=== PATIENT | female | born 1940 | race Caucasian/White ===

== ENCOUNTER 2016-09-06 10:20 | Day surgery (SDC) | payer OTHER ==
[2016-09-06] MEDS ORDERED: LIDOCAINE 1% 30 ML SDV ONE (11:54)
--- NOTE | 2016-09-07 15:57 | EPPROC ---
Electrophysiology Procedure Note: Procedure: LINQ implant Indication: TIA of unknown etiology Procedure: Parts prepared and draped. LA given. Incision placed. Using usual technique, LINQ implanted. [place] placed. Dry sterile dressing placed. Conclusion: Successful LINQ implant Patient Problems: Problems Problem Status Diagnosed Acute ischemic stroke Acute
== END 2016-09-06 12:30 | disposition home or self-care (01) ==
LOC: FCATH 10:20
PROVIDERS: ATTEND Internal Medicine Cardiovascular Disease
PROC: 0JH63PZ Insertion of Cardiac Rhythm Related Device into Chest Subcutaneous Tissue and Fascia, Percutaneous Approach (ICD-10-PCS; principal; 2016-09-06)
DX: I44.39 Other atrioventricular block (principal); E11.9 Type 2 diabetes mellitus without complications; M81.0 Age-related osteoporosis without current pathological fracture; K21.9 Gastro-esophageal reflux disease without esophagitis; Z86.73 Personal history of transient ischemic attack (TIA), and cerebral infarction without residual deficits; E03.9 Hypothyroidism, unspecified
CPT/HCPCS: C1764

== ENCOUNTER 2016-10-18 10:40 | Observation (INO) | payer OTHER ==
[2016-10-18] MEDS ORDERED: NS 1,000 ML IV ONE (10:46)
[2016-10-18] MEDS ORDERED: BACITRACIN IRRIGATION/NS 50,000 UNITS/1,000 ML BTL IRR ONE (10:46)
[2016-10-18] MEDS ORDERED: DIAZEPAM 5 MG TAB PO ONE (10:46)
[2016-10-18] MEDS ORDERED: diphenhydrAMINE 25 MG CAP PO ONE (10:46)
[2016-10-18] MEDS ORDERED: VANCOMYCIN HCL/NORMAL SALINE 250 ML IV ONE (10:47)
--- NOTE | 2016-10-18 11:12 | CPEKG ---
Heart Rate: 90 RR Interval: 667 P-R Interval: 264 QRSD Interval: 88 QT Interval: 372 QTC Interval: 455 P [place]: 46 QRS [place]: -41 T Wave [place]: 113 EKG Severity - ABNORMAL ECG - EKG Impression: SINUS RHYTHM EKG Impression: FIRST DEGREE AV BLOCK EKG Impression: LAD, CONSIDER LEFT ANTERIOR FASCICULAR BLOCK EKG Impression: ANTERIOR INFARCT, OLD Electronically Signed By: Anahi Pacheco 18-Oct-2016 15:18:13
[2016-10-18] MEDS ORDERED: LIDOCAINE 1% 30 ML SDV ONE ×2 (11:27→13:52)
[2016-10-18 11:40] LABS: % IMMATURE GRANULYOCYTES 0.2 % (0.0-1.1); ABSOLUTE IMMATURE GRANULOCYTES 0.02 10^3/uL (0.00-0.10); ADD DIFF? NO; ADD MORPH? NO; ADD SCAN? NO; ATYPICAL LYMPHOCYTE FLAG 10 (0-99); FRAGMENT RBC FLAG 0 (0-99); HEMATOCRIT 41.5 % (38.0-47.0); HEMOGLOBIN 13.4 g/dL (12.6-16.3); LEFT SHIFT FLG 0 (0-99); LIPEMIA HEMOLYSIS FLAG 80 (0-99); MEAN CELL HEMOGLOBIN 30.6 pg (27.9-34.1); MEAN CELL HEMOGLOBIN CONCENTR. 32.3 g/dL (32.4-36.7); MEAN CELL VOLUME 94.7 fL (81.5-99.8); MEAN PLATELET VOLUME 9.6 fL (8.7-11.7); PLATELET CLUMPS FLAG 40 (0-99); PLATELET COUNT 256 10^3/uL (150-400); RED BLOOD CELL COUNT 4.38 10^6/uL (4.18-5.33); RED CELL DISTRIBUTION WIDTH 13.8 % (11.5-15.2)
[2016-10-18 11:45] LABS: INR 1.02 (0.83-1.16); PROTIME(PATIENT) 13.3 SEC (12.0-15.0)
[2016-10-18 11:58] LABS: ANION GAP 12 mEq/L (8-16); CALCIUM 9.6 mg/dL (8.5-10.4); CARBON DIOXIDE 19 mEq/l (22-31); CHLORIDE 112 mEq/L (97-110); CREATININE 0.9 mg/dL (0.6-1.0); GLOMERULAR FILTRATION RATE > 60; GLUCOSE 144 mg/dL (70-100); POTASSIUM 4.5 mEq/L (3.5-5.2); SODIUM 143 mEq/L (134-144); SPECIMEN HEMOLYSIS 140
[2016-10-18] MEDS ORDERED: fentaNYL 100 MCG/2 ML INJ ONE (12:17)
[2016-10-18] MEDS ORDERED: LIDOCAINE 2% 5 ML SDV ONE (12:17)
[2016-10-18] MEDS ORDERED: PROPOFOL 200 MG/20 ML VIAL ONE ×2 (12:18→12:26)
[2016-10-18] MEDS ORDERED: MIDAZOLAM 2 MG/2 ML VIAL ONE (12:20)
[2016-10-18] MEDS ORDERED: LIDO/EPI 1% **for epidural** 30 ML SDV ONE (13:44)
[2016-10-18] MEDS ORDERED: VANCOMYCIN HCL/NORMAL SALINE 250 ML IV SCH (14:00)
[2016-10-18] MEDS ORDERED: ACETAMINOPHEN 325 MG TAB PO PRN (21:36)
[2016-10-18] MEDS ORDERED: KETOROLAC 15 MG/1 ML SDV IVP PRN (21:37)
[2016-10-18] MEDS ORDERED: HYDROCODONE/APAP 5/325 TAB PO PRN (21:38)
[2016-10-19 05:13] LABS: % IMMATURE GRANULYOCYTES 0.2 % (0.0-1.1); ABSOLUTE IMMATURE GRANULOCYTES 0.02 10^3/uL (0.00-0.10); ADD DIFF? NO; ADD MORPH? NO; ADD SCAN? NO; ATYPICAL LYMPHOCYTE FLAG 0 (0-99); FRAGMENT RBC FLAG 0 (0-99); HEMATOCRIT 37.9 % (38.0-47.0); HEMOGLOBIN 12.4 g/dL (12.6-16.3); LEFT SHIFT FLG 0 (0-99); LIPEMIA HEMOLYSIS FLAG 80 (0-99); MEAN CELL HEMOGLOBIN 30.9 pg (27.9-34.1); MEAN CELL HEMOGLOBIN CONCENTR. 32.7 g/dL (32.4-36.7); MEAN CELL VOLUME 94.5 fL (81.5-99.8); MEAN PLATELET VOLUME 10.2 fL (8.7-11.7); PLATELET CLUMPS FLAG 0 (0-99); PLATELET COUNT 231 10^3/uL (150-400); RED BLOOD CELL COUNT 4.01 10^6/uL (4.18-5.33); RED CELL DISTRIBUTION WIDTH 13.7 % (11.5-15.2)
[2016-10-19 05:26] LABS: ANION GAP 11 mEq/L (8-16); CALCIUM 8.9 mg/dL (8.5-10.4); CARBON DIOXIDE 22 mEq/l (22-31); CHLORIDE 109 mEq/L (97-110); CREATININE 0.8 mg/dL (0.6-1.0); GLOMERULAR FILTRATION RATE > 60; GLUCOSE 105 mg/dL (70-100); SODIUM 142 mEq/L (134-144)
--- NOTE | 2016-10-19 08:52 | CPEKG ---
Heart Rate: 85 RR Interval: 706 P-R Interval: 292 QRSD Interval: 90 QT Interval: 376 QTC Interval: 447 P [place]: 6 QRS [place]: -41 T Wave [place]: 98 EKG Severity - ABNORMAL ECG - EKG Impression: SINUS RHYTHM EKG Impression: FIRST DEGREE AV BLOCK EKG Impression: LEFT AXIS DEVIATION EKG Impression: CONSIDER INFERIOR INFARCT EKG Impression: ANTERIOR INFARCT, OLD Electronically Signed By: Anahi Pacheco 19-Oct-2016 15:07:16
[2016-10-19 09:09] VITALS: PULSE 79
[2016-10-19] MEDS ORDERED: VANCOMYCIN HCL/NORMAL SALINE 250 ML IV ONE (10:00)
--- NOTE | 2016-10-19 10:34 | EPPROC ---
Electrophysiology Procedure Note: PROCEDURE PERFORMED: * Implantation of an A/V Pacemaker * * Fluoroscopy INDICATION: THis is a 75 yr old with paroxysmal AV block associated with lightheadedness and dizziness. In view of this it was decided to implant a dual chamber pacemaker. PROCEDURE NOTE: Patient presented to the cardiac catherization laboratory in a fasting, post absorptive state. Cardiac chemical lab supervisor nurse administered moderate sedation. The left infraclavicular area was prepped and draped in the usual sterile fashion. Lidocaine plus bupivacaine was used for local anesthesia. Left subclavian venography was performed by injection of iodinated contrast into the left antecubital vein. This was done to assure patency of the vein and also to assess for any anatomical aberrations. Using a combination of blunt and sharp dissection and electrocautery, the dissection was carried down to the prepectoral fascia. All bleeding was controlled with electrocautery. Fluoroscopy was utilized during the entire procedure for venous access and placement of the leads. Using the usual technique, left cephalic vein was accessed and a glidewire was placed. Through this initially a 9F and later a 7F sheath was passed. Placement of the guidewires into the venous system was confirmed by low- pressure blood return and also by visualizing the guidewires advancing into the inferior vena cava. A purse string suture was applied around the guidewires. An active fixation ventricular lead was advanced into the right ventricular apex and screwed in place. An active fixation atrial lead was advanced into the right atrial appendage and screwed in place. The peel away sheaths were removed. Pacing thresholds, sensing parameters and lead impedances were measured. There was no diaphragmatic stimulation at maximum output. The leads were sutured to the prepectoral fascia with 3 nonabsorbable sutures each. The pocket was created and it was flushed using antibiotic solution. It was inspected for any bleeding. The leads were attached to the pacemaker securely. The pacemaker was inserted into the pocket and secured in place with a nonabsorbable suture. Fluoroscopy was performed in MANLEY and [place] planes to verify right-sided placement of the leads. Also fluoroscopy of the pacemaker pocket was performed. The pacemaker pocket was closed in 3 layers with absorbable vicryl sutures. Steristrips were placed. Appropriate dressing was applied. The patient left the cardiac catheterization laboratory in stable condition. Serial Numbers: * Device: Ancturonik Eluna 8 DR KONG [id number] * Atrial Lead: Biotronik SOlia S 45 SN [id number] * Ventricular Lead: Biotronik SOlia S53 SN [id number] Stimulation Thresholds & Impedance Measurements: * Atrial Lead 1.7mV, 0.6@0.4ms, 579Ohms * Ventricular Lead 8.9mV, 0.6@0.4ms, 760Ohms Quan Pacing Parameters * Pacing mode: DDD * Lower rate: 60 * Upper tracking rate: 130 * Upper sensor rate: 130 Patient Problems: Problems Problem Status Onset Acute ischemic stroke Acute
[2016-10-19] MEDS ORDERED: EPINEPHRINE 0.3 MG IJ PRN (12:08)
[2016-10-19] MEDS ORDERED: NON-FORMULARY NEW DRUG (Ranitidine Hcl [Zantac] 150 MG) PO PRN (12:08)
[2016-10-19] MEDS ORDERED: ALBUTEROL HFA ANES ONLY 200 PUFFS/8.5 GM MDI IH PRN (12:08)
[2016-10-19 12:13] VITALS: BP 141/69; RESP 17; TEMP 99.4; O2SAT 96
[2016-10-19] MEDS ORDERED: ALBUTEROL 60 PUFFS/8 GM MDI IH PRN (12:22)
[2016-10-19] MEDS ORDERED: FAMOTIDINE 20 MG TAB PO PRN (12:24)
[2016-10-20] MEDS ORDERED: LEVOTHYROXINE 50 MCG TAB PO SCH (06:00)
[2016-10-20] MEDS ORDERED: MULTIVITAMINS 1 EACH TAB PO SCH (09:00)
[2016-10-20] MEDS ORDERED: NON-FORMULARY NEW DRUG (Metformin Hcl [Metformin Hcl Er] 500 MG) PO SCH (09:00)
[2016-10-20] MEDS ORDERED: CETIRIZINE 10 MG TAB PO SCH (09:00)
[2016-10-20] MEDS ORDERED: ATORVASTATIN CALCIUM 40 MG TAB PO SCH (09:00)
[2016-10-20] MEDS ORDERED: TRIAMCINOLONE ACETONIDE NS SCH (09:00)
[2016-10-20] MEDS ORDERED: ASPIRIN EC 325 MG TAB PO SCH (09:00)
[2016-10-20] MEDS ORDERED: PANTOPRAZOLE SODIUM 40 MG TAB PO SCH (09:00)
[2016-10-20] MEDS ORDERED: metFORMIN SR 500 MG TAB PO SCH (09:00)
--- NOTE | 2016-10-25 13:36 | GDS ---
[f rep st] DISCHARGE SUMMARY ADMISSION DIAGNOSES: 1. Paroxysmal atrioventricular block. 2. Planned permanent pacemaker placement. 3. Planned extraction of LINQ monitor. 4. History of cerebrovascular accident. DISCHARGE DIAGNOSES: 1. Status post placement of permanent pacemaker, MRI compatible dual-chamber. 2. Successful extraction of LINQ monitor with no complications. 3. Paroxysmal atrioventricular block. 4. Post cerebrovascular accident. COURSE OF HOSPITALIZATION: The patient was seen by Dr. Yusuf in clinic. While previously hospitaliz ed, there was noted paroxysmal AV block. She did wear a 30-day monitor to confirm rhythm, which did show nonconducted P waves without associated nausea, vomiting or other symptoms. Additionally, par oxysmal AV block was noted. It was determined that she have a pacemaker placed. This is an MRI com patible dual-chamber pacemaker. She tolerated the procedure well with no complications. The LINQ m onitor was extracted successfully with no complications. Her hospital course was uneventful. At this time, she currently is stable for discharge. PHYSICAL EXAMINATION: VITAL SIGNS: On day of discharge, blood pressure 141/69, heart rate 79 and r egular, oxygen saturation 96%, temperature 37.4 Celsius. EKG shows a paced rhythm. CARDIAC: Heart rate is regular. No murmurs, rubs, gallops. RESPIRATORY: Lung sounds are clear to auscultation. No wheezes, rales, or rhonchi. Pacemaker incision site is covered with no bloody dressing. No ind uration or redness is noted. Mild tenderness with exam. LINQ extraction site shows no bleeding, in duration or tenderness. DISCHARGE MEDICATION: Aspirin 325 mg daily, Protonix 40 mg daily, Zyrtec 10 mg daily, Lipitor 40 mg daily, Synthroid 50 mcg daily. Nasacort 10.8 mL nasal spray daily, multivitamin 1 daily, ProAir in haler 2 puffs 4 times a day as needed, metformin 500 mg daily, Zantac 150 mg daily as needed, EpiPen as needed, Tylenol 650 mg every 6 hours as needed for pain not to exceed 3 g daily. REPORT: Procedure report 10/19/2016: 1. Implantation of AV pacemaker. 2. Extraction of LINQ monitor. Indication: Paroxysmal AV block associated with lightheadedness and dizziness. Device was a [email or web address], pacing mode DDD, lower rate 60, upper tracking rate 130, upper sensor rate 130. DISCHARGE PLAN: 1. LINQ monitor was extracted. There was no indication of any atrial fibrillation. This was looke d for due to her recent cerebrovascular accident. 2. Left arm restrictions for 1 week. 3. Follow up with Dr. Yusuf in 3 weeks. At this time, she currently is stable for discharge. /[id number]/MODL
== END 2016-10-19 14:22 | disposition home or self-care (01) ==
LOC: FCATH 10:40 → F2W 13:35
PROVIDERS: ADMIT Internal Medicine Cardiovascular Disease; ATTEND Internal Medicine Cardiovascular Disease
DX: I44.30 Unspecified atrioventricular block (principal); E03.9 Hypothyroidism, unspecified; E11.9 Type 2 diabetes mellitus without complications; M81.0 Age-related osteoporosis without current pathological fracture; Z86.73 Personal history of transient ischemic attack (TIA), and cerebral infarction without residual deficits
CPT/HCPCS: 33208; 71020; 93005; C1769; C1785; C1898; G0378; J1885; J2250; J2704; J3010; J3370

== ENCOUNTER 2016-10-26 11:20 | Observation (INO) | payer OTHER ==
[2016-10-26] MEDS ORDERED: DIAZEPAM 5 MG TAB PO ONE (11:32)
[2016-10-26] MEDS ORDERED: BACITRACIN IRRIGATION/NS 50,000 UNITS/1,000 ML BTL IRR ONE (11:32)
[2016-10-26] MEDS ORDERED: NS 1,000 ML IV ONE (11:32)
[2016-10-26] MEDS ORDERED: diphenhydrAMINE 25 MG CAP PO ONE (11:32)
--- NOTE | 2016-10-26 11:45 | CPEKG ---
Heart Rate: 88 RR Interval: 682 P-R Interval: 276 QRSD Interval: 94 QT Interval: 368 QTC Interval: 446 P [place]: 26 QRS [place]: -51 T Wave [place]: 65 EKG Severity - ABNORMAL ECG - EKG Impression: SINUS RHYTHM EKG Impression: FIRST DEGREE AV BLOCK EKG Impression: LEFT ANTERIOR FASCICULAR BLOCK EKG Impression: ANTERIOR INFARCT, OLD EKG Impression: UNCHANGED IN COMPARISON TO PRIOR Electronically Signed By: Javier Gramajo 27-Oct-2016 08:54:51
[2016-10-26] MEDS ORDERED: LIDOCAINE 1% 30 ML SDV ONE (11:55)
[2016-10-26] MEDS ORDERED: MIDAZOLAM 2 MG/2 ML VIAL ONE ×2 (11:55→13:14)
[2016-10-26] MEDS ORDERED: fentaNYL 100 MCG/2 ML INJ ONE ×2 (11:56→13:14)
[2016-10-26] MEDS ORDERED: BUPIVACAINE 0.5% 30 ML SDV ONE (11:56)
[2016-10-26] MEDS ORDERED: VANCOMYCIN HCL/NORMAL SALINE 250 ML IV ONE (12:00)
[2016-10-26 12:06] LABS: % IMMATURE GRANULYOCYTES 0.5 % (0.0-1.1); ABSOLUTE IMMATURE GRANULOCYTES 0.05 10^3/uL (0.00-0.10); ADD DIFF? NO; ADD MORPH? NO; ADD SCAN? NO; ATYPICAL LYMPHOCYTE FLAG 10 (0-99); FRAGMENT RBC FLAG 0 (0-99); HEMATOCRIT 43.2 % (38.0-47.0); LEFT SHIFT FLG 0 (0-99); LIPEMIA HEMOLYSIS FLAG 80 (0-99); MEAN CELL HEMOGLOBIN 29.7 pg (27.9-34.1); MEAN CELL HEMOGLOBIN CONCENTR. 32.4 g/dL (32.4-36.7); MEAN CELL VOLUME 91.7 fL (81.5-99.8); MEAN PLATELET VOLUME 9.8 fL (8.7-11.7); PLATELET CLUMPS FLAG 0 (0-99); PLATELET COUNT 269 10^3/uL (150-400); RED BLOOD CELL COUNT 4.71 10^6/uL (4.18-5.33); RED CELL DISTRIBUTION WIDTH 13.6 % (11.5-15.2)
[2016-10-26 12:10] LABS: INR 0.98 (0.83-1.16); PROTIME(PATIENT) 12.9 SEC (12.0-15.0)
[2016-10-26 12:20] LABS: ANION GAP 11 mEq/L (8-16); CALCIUM 9.6 mg/dL (8.5-10.4); CARBON DIOXIDE 24 mEq/l (22-31); CHLORIDE 105 mEq/L (97-110); GLOMERULAR FILTRATION RATE 54; GLUCOSE 144 mg/dL (70-100); POTASSIUM 3.7 mEq/L (3.5-5.2); SODIUM 140 mEq/L (134-144)
[2016-10-26] MEDS ORDERED: LIDO/EPI 1% **for epidural** 30 ML SDV ONE (12:52)
--- NOTE | 2016-10-26 13:28 | ECHO ---
[id number] + + [address] : : [place] [address] : : [phone] + + Adult Echocardiographic Report + -----+ :Name: TAYLOR NEWSOME BStudy Date: 10/26/2016 12:46 PM : : Hospital Admission Number: [id number] Location : [facility]: :: 1940 Gender: Female : :Age: 75 yrs Race: WH : :Reason For Study: Eval for pericardial effusion : :History: New Pacer : + -----+ Pericardium/Pleural There is no pericardial effusion. Conclusion Limited 2-D echo. There is no pericardial effusion. Final Reading Physician: Danish Lezama signed on 10/26/2016 01:27 PM Ordering Physician: Josesito Yusuf Performed By: Vannesa Norton RDCS
[2016-10-26] MEDS ORDERED: NON-FORMULARY NEW DRUG (Ranitidine Hcl [Zantac] 150 MG) PO PRN (14:12)
[2016-10-26] MEDS ORDERED: ALBUTEROL 60 PUFFS/8 GM MDI IH PRN (14:12)
[2016-10-26] MEDS ORDERED: EPINEPHRINE 0.3 MG IJ PRN (14:12)
[2016-10-26] MEDS ORDERED: FAMOTIDINE 20 MG TAB PO PRN (15:19)
[2016-10-26] MEDS ORDERED: NON-FORMULARY NEW DRUG (Metformin Hcl [Metformin Hcl Er] 500 MG) PO SCH (18:00)
[2016-10-26] MEDS ORDERED: metFORMIN SR 500 MG TAB PO SCH (18:00)
[2016-10-26] MEDS: ACETAMINOPHEN 325 MG TAB PO PRN (20:26)
[2016-10-27] MEDS: ACETAMINOPHEN 325 MG TAB PO PRN (03:35)
[2016-10-27 05:09] LABS: % IMMATURE GRANULYOCYTES 0.4 % (0.0-1.1); ABSOLUTE IMMATURE GRANULOCYTES 0.04 10^3/uL (0.00-0.10); ADD DIFF? NO; ADD MORPH? NO; ADD SCAN? NO; ATYPICAL LYMPHOCYTE FLAG 10 (0-99); FRAGMENT RBC FLAG 0 (0-99); HEMATOCRIT 38.5 % (38.0-47.0); HEMOGLOBIN 12.1 g/dL (12.6-16.3); LEFT SHIFT FLG 0 (0-99); LIPEMIA HEMOLYSIS FLAG 80 (0-99); MEAN CELL HEMOGLOBIN 30.2 pg (27.9-34.1); MEAN CELL HEMOGLOBIN CONCENTR. 31.4 g/dL (32.4-36.7); MEAN PLATELET VOLUME 10.3 fL (8.7-11.7); PLATELET CLUMPS FLAG 40 (0-99); PLATELET COUNT 210 10^3/uL (150-400); RED BLOOD CELL COUNT 4.01 10^6/uL (4.18-5.33); RED CELL DISTRIBUTION WIDTH 13.8 % (11.5-15.2)
[2016-10-27 05:12] LABS: ANION GAP 11 mEq/L (8-16); CALCIUM 8.7 mg/dL (8.5-10.4); CARBON DIOXIDE 21 mEq/l (22-31); CHLORIDE 107 mEq/L (97-110); CREATININE 0.8 mg/dL (0.6-1.0); GLOMERULAR FILTRATION RATE > 60; GLUCOSE 145 mg/dL (70-100); POTASSIUM 3.7 mEq/L (3.5-5.2); SODIUM 139 mEq/L (134-144)
[2016-10-27] MEDS ORDERED: LEVOTHYROXINE 50 MCG TAB PO SCH (06:00)
--- NOTE | 2016-10-27 08:08 | CPEKG ---
Heart Rate: 74 RR Interval: 811 P-R Interval: 316 QRSD Interval: 100 QT Interval: 412 QTC Interval: 457 P [place]: 33 QRS [place]: -42 T Wave [place]: 3 EKG Severity - ABNORMAL ECG - EKG Impression: SINUS RHYTHM EKG Impression: FIRST DEGREE AV BLOCK EKG Impression: LEFT ANTERIOR FASCICULAR BLOCK EKG Impression: ABNRM R PROG, CONSIDER ASMI OR LEAD PLACEMENT Electronically Signed By: Javier Gramajo 27-Oct-2016 08:54:58
--- NOTE | 2016-10-27 08:38 | CPEKG ---
Heart Rate: 83 RR Interval: 723 P-R Interval: 392 QRSD Interval: 92 QT Interval: 448 QTC Interval: 527 P [place]: 67 QRS [place]: -40 T Wave [place]: 65 EKG Severity - ABNORMAL ECG - EKG Impression: VENTRICULAR-PACED COMPLEXES EKG Impression: FIRST DEGREE AV BLOCK EKG Impression: LEFT AXIS DEVIATION EKG Impression: NONSPECIFIC T ABNORMALITIES, LATERAL LEADS EKG Impression: EARLY BEATS APPEAR TO BE VENTRICULAR PACED (WITH CAPTURE) AND LATTER BEATS EKG Impression: WITHOUT OVER CAPTURE NOTED GIVEN THE MORPHOLOGY OF THE QRS WAVEFORMS Electronically Signed By: Javier Gramajo 27-Oct-2016 13:05:52
[2016-10-27] MEDS ORDERED: ATORVASTATIN CALCIUM 40 MG TAB PO SCH (09:00)
[2016-10-27] MEDS ORDERED: ASPIRIN EC 325 MG TAB PO SCH (09:00)
[2016-10-27] MEDS ORDERED: TRIAMCINOLONE ACETONIDE NS SCH (09:00)
[2016-10-27] MEDS ORDERED: MULTIVITAMINS 1 EACH TAB PO SCH (09:00)
[2016-10-27] MEDS ORDERED: PANTOPRAZOLE SODIUM 40 MG TAB PO SCH (09:00)
[2016-10-27] MEDS ORDERED: KETOROLAC 15 MG/1 ML SDV IVP ONE (09:09)
--- NOTE | 2016-10-27 09:45 | EPPROC ---
Electrophysiology Procedure Note: PROCEDURE PERFORMED: * RV lead reposition INDICATION: Pt with recent pacemaker implant. DUe to vomitting and excessive use of left arm, the RV lead lost capture. Xray showed migration of the RV lead and hence it was decided to reposition the lead. PROCEDURE NOTE: Patient presented to the cardiac catheterization laboratory in a fasting, postabsorptive state. Moderate sedation was administered . The left infraclavicular area was prepped and draped in the usual sterile fashion. Lidocaine plus bupivacaine was used for local anesthesia. Using a combination of blunt and sharp dissection and electrocautery, the dissection was carried down to the prepectoral fascia and the existing pacemaker pocket was opened. The pacemaker generator was disconnected from the leads. RV lead suture was cut. Stylet placed. Screw retracted. Lead repositioned. Good numbers obtained. Lead sutured. Lead reconneted to old generator. . The pacemaker pocket was copiously irrigated with antibiotic solution. The pocket was again inspected for any bleeding. The leads were attached to the pacemaker securely. The pacemaker was inserted into the pocket and secured in place with a nonabsorbable suture. The pacemaker pocket was closed in 3 layers with absorbable monocryl sutures. Appropriate dressing was applied. The patient left the cardiac catheterization laboratory in stable condition. Serial Numbers: * Device Biotronik Messi [address] DR SN [id number] * Atrial Lead Biotronik Solia S45 SN [id number] * Ventricular Lead Biotronik Solia S53 SN [id number] Stimulation Thresholds & Impedance Measurements: * Atrial Lead1.7mV, 0.6@0.4ms, 579Ohms * Ventricular Lead 8.9mV, 0.6@0.4ms, 760Ohms Quan Pacing Parameters * Pacing mode DDD * Lower rate 60 * Upper tracking rate 120 * Upper sensor rate 120 Patient Problems: Problems Problem Status Onset Acute ischemic stroke Acute Bradycardia Acute
[2016-10-27 12:05] VITALS: PULSE 88; RESP 20; TEMP 98.2
--- NOTE | 2016-10-27 12:12 | GDS ---
[f rep st] DISCHARGE SUMMARY DISCHARGE DIAGNOSIS: Paroxysmal atrioventricular block status post dual-chamber Biotronik pacer on 10/18/2016. The procedure went without any associated complications initially. Unfortunately, on 10/24 she was noted to have RV lead failure. Apparently, her had broken his arm and, therefore, the patie nt was doing more physical activity than usual. She was admitted to the hospital on 10/26 for an el ective right ventricular lead revision. This was performed by Dr. Josesito Yusuf and was uncomplicate d. The following day, she complained of some discomfort over her pacer site and did require IV Pretty dol. She feels she will be safe with NSAIDs for pain at home. Her chest x-ray the day of discharge was negative for pneumothorax. She was monitored on telemetry and remained in normal sinus rhythm. Her EKG revealed intermittent AV pacing. Her pacer site is mildly edematous without any evidence of hematoma or infection. She did have an echocardiogram on 10/26, which was negative for pericardi al effusion. The patient was evaluated by Physical Therapy and Occupational Therapy prior to discharge. Home hea lth was recommended, but she has refused on multiple occasions. She has been given pacer precaution s and understands the need to not do any sort of physical activity with her left arm. PHYSICAL EXAMINATION: GENERAL: The patient appears in no acute distress. VITAL SIGNS: Blood pres sure 114/79, heart rate 81, oxygen saturation of 94% on room air, afebrile. LUNGS: Clear to auscul tation. No wheezes, rhonchi, or crackles auscultated. CARDIAC: Regular rate and rhythm. Chest wa ll pacer site is clean, intact, without any evidence of infection. She does have some swelling over the site, but no evidence of hematoma. DISCHARGE MEDICATIONS: Her medications are unchanged. She will continue Tylenol p.r.n. for pain, a lbuterol p.r.n., aspirin 325 mg daily, Lipitor 40 mg daily, epinephrine p.r.n., Synthroid 50 mcg adrian ly, metformin 500 mg daily, multivitamin daily, Protonix 40 mg daily, Zantac 150 mg daily, Nasacort daily. PLAN: The patient is currently ready for discharge home. Home health has been recommended and refu sed. The patient is scheduled to follow up in our office for a wound check and pacer interrogation on 11/02 at 2:15. She is scheduled to see Dr. Josesito Yusuf on 11/15 at 10:30. Pacer precautions we re discussed with her today in detail. Greater than 30 minutes were spent coordinating the patient's care today. /[id number]/MODL
[2016-10-27 12:14] VITALS: O2SAT 93
[2016-10-27 12:26] VITALS: BP 124/74
== END 2016-10-27 13:31 | disposition home or self-care (01) ==
LOC: FCATH 11:20 → UNDOADMOB 14:11 → F2W 14:11
PROVIDERS: ADMIT Internal Medicine Cardiovascular Disease; ATTEND Internal Medicine Cardiovascular Disease
PROC: 02WA0MZ Revision of Cardiac Lead in Heart, Open Approach (ICD-10-PCS; principal; 2016-10-26)
DX: T82.120A Displacement of cardiac electrode, initial encounter (principal); I44.2 Atrioventricular block, complete; E03.9 Hypothyroidism, unspecified; E11.9 Type 2 diabetes mellitus without complications; M81.0 Age-related osteoporosis without current pathological fracture; K21.9 Gastro-esophageal reflux disease without esophagitis; R94.31 Abnormal electrocardiogram [ECG] [EKG]; Z79.84 Long term (current) use of oral hypoglycemic drugs; Z86.73 Personal history of transient ischemic attack (TIA), and cerebral infarction without residual deficits
CPT/HCPCS: 33215; 71020; 93005; 93308; 97161; 97165; 97535; G0378; G8978; G8979; G8980; G8987; G8988; G8989; J1885; J2250; J3010; J3370

== ENCOUNTER → 2017-10-09 | Outpatient (CLI) | payer OTHER | LOC: FIMAGING 09:27 | PROVIDERS: ATTEND Physical Medicine & Rehabilitation | DX: M51.36 Other intervertebral disc degeneration, lumbar region (principal); M51.35 Other intervertebral disc degeneration, thoracolumbar region; M99.73 Connective tissue and disc stenosis of intervertebral foramina of lumbar region ==

== ENCOUNTER → 2018-05-23 | Outpatient (CLI) | payer OTHER | LOC: FIMAGING 13:33 | PROVIDERS: ATTEND Physical Medicine & Rehabilitation | DX: M19.212 Secondary osteoarthritis, left shoulder (principal); M75.92 Shoulder lesion, unspecified, left shoulder ==

== ENCOUNTER → 2018-11-28 | Outpatient (CLI) | payer OTHER, MEDICARE ==
[~2018-11-28] MED LIST: GADOBUTROL 10 ML VIAL IVP ONE
== END ==
LOC: FIMAGING 12:20
PROVIDERS: ATTEND Internal Medicine
DX: R26.81 Unsteadiness on feet (principal); R41.3 Other amnesia; R53.1 Weakness; G31.9 Degenerative disease of nervous system, unspecified; R90.89 Other abnormal findings on diagnostic imaging of central nervous system; Z86.73 Personal history of transient ischemic attack (TIA), and cerebral infarction without residual deficits
CPT/HCPCS: 70553; A9585